=== PATIENT | male | born 1995 | race Caucasian/White ===

== ENCOUNTER 2023-03-27 16:23 | Emergency (ER) | payer MEDICAID, OTHER ==
[~2023-03-27] VITALS: Ht 188 cm; Wt 91.0 kg
[2023-03-27 16:24] VITALS: BP 138/100; TEMP 97.2; O2SAT 97
[2023-03-27] MEDS ORDERED: ALBUTEROL (0.083%) 2.5MG/3ML NEB HHN STA (16:39)
[2023-03-27 17:15] LABS: BASOPHILS % 0.5 % (0.0-2.0); EOSINOPHILS % 1.3 % (0.0-5.0); HEMATOCRIT. 48.3 % (42.0-52.0); LYMPHOCYTES % 21.7 % (20.0-50.0); MEAN CORPUSCULAR HEMOGLOBIN 31.5 pg (28.0-32.0); MEAN CORPUSCULAR HGB CONC 35.1 g/dL (31.0-37.0); MEAN CORPUSCULAR VOLUME 89.8 fL (80.0-94.0); MEAN PLATELET VOLUME 7.8 fl (7.4-10.4); MONOCYTES % 12.5 % (2.0-8.0); PLATELET 281 x1000/uL (130-400); RED BLOOD CELL COUNT 5.38 mill/uL (4.7-6.1); RED CELL DISTRIBUTION WIDTH 13.1 % (11.6-14.6); WHITE BLOOD COUNT 9.3 x1000/uL (4.5-11.0)
[2023-03-27 17:31] LABS: ALANINE AMINOTRANSFERASE < 7 IU/L (10-49); ALBUMIN 4.5 g/dL (3.2-4.8); ASPARTATE AMINOTRANSFERASE 13 IU/L (<34); BILIRUBIN TOTAL 0.4 mg/dL (0.1-1.0); CALCIUM 9.2 mg/dL (8.7-10.4); CARBON DIOXIDE 21 mEq/L (21-32); CHLORIDE 106 mEq/L (98-107); CREATININE 0.8 mg/dL (0.6-1.3); GLUCOSE 86 mg/dL (70-105); POTASSIUM 3.9 mEq/L (3.5-5.1); PROTEIN TOTAL 8.3 g/dL (6.0-8.3); SODIUM 138 mEq/L (136-145); UREA NITROGEN BLOOD 14 mg/dL (9-23)
[2023-03-27 17:32] LABS: TROPONIN I HIGH SENSITIVITY < 4 ng/L (3.0-53)
[2023-03-27 18:36] VITALS: PULSE 83; RESP 18
[2023-03-27] MEDS ORDERED: ALBUTEROL (0.083%) 2.5MG/3ML NEB HHN NR (18:45)
[2023-03-27] MEDS ORDERED: ALBU90AE INH (19:04)
== END 2023-03-27 20:35 | disposition home or self-care (01) ==
LOC: ER 16:23
DX: R42 Dizziness and giddiness (principal); B34.9 Viral infection, unspecified; F20.9 Schizophrenia, unspecified; F17.200 Nicotine dependence, unspecified, uncomplicated; Z88.0 Allergy status to penicillin
CPT/HCPCS: 80053; 82962; 85025; 84484; 36415; 71045; 94640; 93005; 99285; Z7610 ×3

== ENCOUNTER 2024-05-28 09:23 | Emergency (ER) | payer MEDICAID, OTHER ==
[~2024-05-28] VITALS: Ht 180.3 cm; Wt 95.3 kg
[~2024-05-28 09:23] MED LIST: ALBU90AE INH
[2024-05-28 09:26] VITALS: TEMP 36.4; O2SAT 98
[2024-05-28] MEDS: ONDANSETRON 4MG ODT PO ONE (10:00)
[2024-05-28] MEDS: ACETAMINOPHEN 325MG TABLET PO ONE (10:00)
[2024-05-28 10:25] LABS: BASOPHILS % 0.2 % (0.0-2.0); EOSINOPHILS % 0.4 % (0.0-5.0); HEMATOCRIT. 48.8 % (42.0-52.0); HEMOGLOBIN. 16.8 g/dL (14.0-18.0); LYMPHOCYTES % 18.7 % (20.0-50.0); MEAN CORPUSCULAR HEMOGLOBIN 30.9 pg (28.0-32.0); MEAN CORPUSCULAR HGB CONC 34.4 g/dL (31.0-37.0); MEAN CORPUSCULAR VOLUME 89.8 fL (80.0-94.0); MEAN PLATELET VOLUME 7.6 fl (7.4-10.4); MONOCYTES % 7.7 % (2.0-8.0); PLATELET 248 x1000/uL (130-400); RED BLOOD CELL COUNT 5.43 mill/uL (4.7-6.1); WHITE BLOOD COUNT 9.7 x1000/uL (4.5-11.0)
[2024-05-28 10:32] LABS: CHLORIDE 104 mEq/L (98-107); POTASSIUM 3.8 mEq/L (3.5-5.1); SODIUM 138 mEq/L (136-145)
[2024-05-28 10:33] LABS: CALCIUM 9.9 mg/dL (8.7-10.4); CARBON DIOXIDE 24 mEq/L (21-32)
[2024-05-28 10:38] LABS: CREATININE 1.2 mg/dL (0.6-1.3); GLUCOSE 101 mg/dL (70-105); UREA NITROGEN BLOOD 9 mg/dL (9-23)
[2024-05-28 10:58] LABS: ALANINE AMINOTRANSFERASE 85 IU/L (10-49); ALBUMIN 4.7 g/dL (3.2-4.8); ASPARTATE AMINOTRANSFERASE 48 IU/L (<34); BILIRUBIN DIRECT 0.1 mg/dL (<=3.0); BILIRUBIN TOTAL 0.5 mg/dL (0.1-1.0); PROTEIN TOTAL 8.1 g/dL (6.0-8.3)
[2024-05-28 11:14] LABS: CLARITY URINE CLEAR (CLEAR); COLOR URINE YELLOW (YELLOW); GLUCOSE URINE NEGATIVE (NEGATIVE); KETONES URINE NEGATIVE (NEGATIVE); LEUKOCYTE ESTERASE URINE NEGATIVE (NEGATIVE); NITRITE URINE NEGATIVE (NEGATIVE); OCCULT BLOOD URINE NEGATIVE (NEGATIVE); PH URINE 7.5 (4.5-8.0); PROTEIN URINE NEGATIVE (NEGATIVE); SPECIFIC GRAVITY URINE 1.007 (1.005-1.030); UROBILINOGEN URINE 0.2 E.U./dL (0.2-1.0)
[2024-05-28] MEDS ORDERED: CIPR500T5 MT (11:35)
[2024-05-28] MEDS ORDERED: METR-167 MT (11:35)
[2024-05-28] MEDS ORDERED: ONDA-239 PO (11:35)
[2024-05-28 11:46] VITALS: BP 146/84; PULSE 80; RESP 12; O2SAT 98
== END 2024-05-28 11:49 | disposition home or self-care (01) ==
LOC: ER 09:23
DX: R10.9 Unspecified abdominal pain (principal); K52.9 Noninfective gastroenteritis and colitis, unspecified; F20.9 Schizophrenia, unspecified; Z88.0 Allergy status to penicillin
CPT/HCPCS: 99284; 74176; 80076; 80048; 81003; 83690; 85025; 36415; Q0162

== ENCOUNTER 2024-06-17 13:05 | Emergency (ER) | payer MEDICAID, OTHER ==
[~2024-06-17] VITALS: Ht 180.3 cm; Wt 99.7 kg
[~2024-06-17 13:05] MED LIST changes: +CIPR500T5 MT; +METR-167 MT; +ONDA-239 PO
[2024-06-17 13:15] VITALS: O2SAT 98
[2024-06-17 13:23] VITALS: TEMP 36.7; O2SAT 99
[2024-06-17 14:30] LABS: BASOPHILS % 0.4 % (0.0-2.0); EOSINOPHILS % 0.3 % (0.0-5.0); HEMATOCRIT. 48.7 % (42.0-52.0); HEMOGLOBIN. 16.8 g/dL (14.0-18.0); MEAN CORPUSCULAR HEMOGLOBIN 31.2 pg (28.0-32.0); MEAN CORPUSCULAR HGB CONC 34.4 g/dL (31.0-37.0); MEAN CORPUSCULAR VOLUME 90.7 fL (80.0-94.0); MEAN PLATELET VOLUME 7.7 fl (7.4-10.4); MONOCYTES % 7.7 % (2.0-8.0); NEUTROPHILS % 79.6 % (40.0-76.0); PLATELET 269 x1000/uL (130-400); RED BLOOD CELL COUNT 5.37 mill/uL (4.7-6.1); RED CELL DISTRIBUTION WIDTH 13.7 % (11.6-14.6); WHITE BLOOD COUNT 12.9 x1000/uL (4.5-11.0)
[2024-06-17 14:38] LABS: CHLORIDE 103 mEq/L (98-107); POTASSIUM 3.8 mEq/L (3.5-5.1); SODIUM 137 mEq/L (136-145)
[2024-06-17 14:39] LABS: CARBON DIOXIDE 24 mEq/L (21-32)
[2024-06-17 14:44] LABS: CREATININE 1.2 mg/dL (0.6-1.3); GLUCOSE 87 mg/dL (70-105)
[2024-06-17 14:45] LABS: UREA NITROGEN BLOOD 10 mg/dL (9-23)
[2024-06-17 14:48] VITALS: BP 142/89; PULSE 98; RESP 16; TEMP 98
[2024-06-17] MEDS: KETOROLAC 30MG/ML VIAL IM ONE (14:48)
[2024-06-17] MEDS: ACETAMINOPHEN 325MG TABLET PO ONE (14:48)
[2024-06-17 14:53] LABS: CLARITY URINE CLEAR (CLEAR); COLOR URINE YELLOW (YELLOW); GLUCOSE URINE NEGATIVE (NEGATIVE); KETONES URINE TRACE (NEGATIVE); LEUKOCYTE ESTERASE URINE NEGATIVE (NEGATIVE); NITRITE URINE NEGATIVE (NEGATIVE); OCCULT BLOOD URINE NEGATIVE (NEGATIVE); PH URINE 6.5 (4.5-8.0); PROTEIN URINE NEGATIVE (NEGATIVE); SPECIFIC GRAVITY URINE 1.009 (1.005-1.030); UROBILINOGEN URINE 0.2 E.U./dL (0.2-1.0)
== END 2024-06-17 16:11 | disposition home or self-care (01) ==
LOC: ER 14:22
DX: M54.50 Low back pain, unspecified (principal); F20.9 Schizophrenia, unspecified; Z88.0 Allergy status to penicillin
CPT/HCPCS: 36415; 72100; 80048; 81003; 85025; 96372; 99284